=== PATIENT | male | born 1975 | race Caucasian/White ===

== ENCOUNTER 2018-01-09 18:24 | Emergency (ER) | payer SELFPAY | END 2018-01-09 19:15 | disposition home or self-care (01) | LOC: ER 18:24 | DX: S02.5XXA Fracture of tooth (traumatic), initial encounter for closed fracture (principal); K02.9 Dental caries, unspecified; X58.XXXA Exposure to other specified factors, initial encounter; Y93.89 Activity, other specified; Y99.8 Other external cause status; Y92.89 Other specified places as the place of occurrence of the external cause | CPT/HCPCS: 99283 ==

== ENCOUNTER → 2021-08-15 | Outpatient (CLI) | payer OTHER ==
[2018-01-09 18:27] VITALS: BP 118/71
[~2021-08-15] MED LIST: HYDR-3164 PO; PENI500T PO
== END ==
LOC: LAB 09:53
PROVIDERS: ATTEND Surgery
DX: U07.1 COVID-19 (principal); K40.90 Unilateral inguinal hernia, without obstruction or gangrene, not specified as recurrent
CPT/HCPCS: U0003; U0005

== ENCOUNTER 2021-09-12 12:29 | Day surgery (SDC) | payer OTHER ==
[~2021-09-12] VITALS: Ht 175.3 cm; Wt 67.5 kg
[~2021-09-12 12:29] MED LIST changes: +HYDROmorphone 2 MG/ML INJ. IVP PRN; +IV RINGERS,LACTATED 1000ML 1,000 ML IV SCH; +MORPHINE SULFATE 2 MG/ML INJ. IVP PRN; +PROCHLORPERAZINE 10 MG/2 ML VIAL. IVP PRN; +ceFAZolin SODIUM IV Push 1 GM VIAL. IVP PRN; +fentaNYL PF VIAL 100 MCG/2 ML VIAL IVP PRN
[2021-09-12] MEDS ORDERED: LIDOCAINE 2% PF 5 ML VIAL. ONE (13:48)
[2021-09-12] MEDS ORDERED: PROPOFOL 10 MG/ML (20ML) VIAL. IV ONE (13:48)
[2021-09-12] MEDS ORDERED: ROCURONIUM 50 MG/5 ML VIAL. ONE (13:49)
[2021-09-12] MEDS ORDERED: NEOSTIGMINE METHYLSULFATE 5 MG/5 ML SYRINGE. ONE (13:49)
[2021-09-12] MEDS ORDERED: fentaNYL PF VIAL 100 MCG/2 ML VIAL ONE (13:49)
[2021-09-12] MEDS ORDERED: MIDAZOLAM HCL/PF 2 MG/2 ML VIAL. ONE (13:49)
[2021-09-12] MEDS ORDERED: DEXAMETHASONE SOD PHOS 4 MG/ML VIAL ONE (13:50)
[2021-09-12] MEDS ORDERED: ONDANSETRON PF 4 MG/2 ML VIAL. ONE (13:50)
[2021-09-12] MEDS ORDERED: GLYCOPYRROLATE 1 MG/5 ML VIAL. ONE (13:50)
--- NOTE | 2021-09-12 14:16 | PDOC1 ---
History and Physical Date of Admission Date of Admission DATE: 09/12/21 TIME: 14:13 History of Present Illness History of Present Illness The patient is a 46-year-old male who is referred with an enlarging left inguinal hernia. Past Medical History Past Medical History Tobacco use Past Surgical History Past Surgical History He denies Social History Smoke: 1 pack per day ALCOHOL: heavy Current Medications Current Medications Current Medications Fentanyl Citrate (Fentanyl 2ml Vial) 25 mcg PRN Q5MIN PRN IVP MILD PAIN 1-3; Start 09/12/21 at 06:00; Stop 09/12/21 at 20:00 Fentanyl Citrate (Fentanyl 2ml Vial) 50 mcg PRN Q5MIN PRN IVP MODERATE PAIN 4- 6; Start 09/12/21 at 06:00; Stop 09/12/21 at 20:00 Morphine Sulfate (Morphine Sulfate) 1 mg PRN Q10MIN PRN IVP SEVERE PAIN 7-10; Start 09/12/21 at 06:00; Stop 09/12/21 at 20:00 Ringer's Solution 1,000 ml @ 30 mls/hr Q24H IV Last administered on 09/12/21at 13:06; Start 09/12/21 at 06:00; Stop 09/12/21 at 17:59 Hydromorphone HCl (Dilaudid) 0.5 mg PRN Q10MIN PRN IVP SEVERE PAIN 7-10, 2nd CHOICE; Start 09/12/21 at 06:00; Stop 09/12/21 at 20:00 Prochlorperazine Edisylate (Compazine) 5 mg PACU PRN PRN IVP NAUSEA, MRX1; Start 09/12/21 at 06:00; Stop 09/12/21 at 20:00 Cefazolin Sodium (Ancef) 1 gm 1X PREOP PRN IVP PRIOR TO PROCEDURE; Start 09/12/21 at 06:00 Active Scripts Active Reported No Known Medications Prior To Admisstion (Info) Each 1 Each MC 1X Allergies Allergies: Coded Allergies: No Known Drug Allergies (Unverified , 09/12/21) ROS General: No: Chills, Night Sweats, Fatigue, Malaise, Appetite, Other PSYCHOLOGICAL ROS: No: Anxiety, Behavioral Disorder, Concentration difficultie, Decreased libido, Depression, Disorientation, Hallucinations, Hostility, Irritablity, Memory difficulties, Mood Swings, Obsessive thoughts, Physical abu se, Sexual abuse, Sleep disturbances, Suicidal ideation, Other Eyes: No Blurry vision, No Decreased vision, No Double vision, No Dry eyes, No Excessive tearing, No Eye Pain, No Itchy Eyes, No Loss of vision, No Photophobia, No Scotomata, No Uses contacts, No Uses glasses, No Other HEENT: No: Heacaches, Visual Changes, Hearing change, Nasal congestion, Nasal discharge, Oral lesions, Sinus pain, Sore Throat, Epistaxis, Sneezing, Snoring, Tinnitus, Vertigo, Vocal changes, Other ALLERGY AND IMMUNOLOGY: No: Hives, Insect Bite Sensitivity, Itchy/Watery Eyes, Nasal Congestion, Post Nasal Drip, Seasonal Allergies, Other Hematological and Lymphatic: No: Bleeding Problems, Blood Clots, Blood Transfusions, Brusing, Night Sweats, Pallor, Swollen Lymph Nodes, Other ENDOCRINE: No: Breast Changes, Galactorrhea, Hair Pattern Changes, Hot Flashes, Malaise/lethargy, Mood Swings, Palpitations, Polydipsia/polyuria, Skin Changes, Temperature Intolerance, Unexpected Weight Changes, Other Respiratory: No: Cough, Hemoptysis, Orthopnea, Pleuritic Pain, Shortness of breath, SOB with excertion, Sputum Changes, Stridor, Tachypnea, Wheezing, Other Cardiovascular: No Chest Pain, No Palpitations, No Orthopnea, No Paroxysmal Noc. Dyspnea, No Edema, No Lt Headedness, No Other Gastrointestinal: No Nausea, No Vomiting, No Abdominal Pain, No Diarrhea, No Constipation, No Melena, No Hematochezia, No Other Genitourinary: No Dysuria, No Frequency, No Incontinence, No Hematuria, No Retention, No Discharge, No Urgency, No Pain, No Flank Pain, No Other, No , No , No , No , No , No , No Musculoskeletal: No Gait Disturbance, No Joint Pain, No Joint Stiffness, No Joint Swelling, No Muscle Pain, No Muscular Weakness, No Pain In:, No Swelling In:, No Other Neurological: No Behavorial Changes, No Bowel/Bladder ControlChng, No Confusion, No Dizziness, No Gait Disturbance, No Headaches, No Impaired Coord/balance, No Memory Loss, No Numbness/Tingling, No Seizures, No Speech Problems, No Tremors, No Visual Changes, No Weakness, No Other Skin: No Dry Skin, No Eczema, No Hair Changes, No Lumps, No Mole Changes, No Mottling, No Nail Changes, No Pruritus, No Rash, No Skin Lesion Changes, No Other, No Acne Physical Exam General: Alert, Oriented X3, Cooperative HEENT: Atraumatic Lungs: Clear to auscultation Heart: S1S2, RRR Abdomen: Soft, No tenderness, Other (Moderate sized left inguinal hernia, reducible) Rectal Exam: not examined Skin: No rashes, No breakdown Neuro: Normal gait, Normal speech, Strength at 5/5 X4 ext Psych/Mental Status: Mental status NL Vitals Vitals Vital Signs Date Time Temp Pulse Resp B/P (MAP) Pulse Ox O2 Delivery O2 Flow Rate FiO2 09/12/21 12:54 97.6 73 20 128/68 99 Room Air 97.6 VTE Prophylaxis Ordered VTE Prophylaxis Devices: Yes VTE Pharmacological Prophylaxi: No Assessment/Plan Assessment/Plan 46-year-old male with a left inguinal hernia. Recommend repair of the left inguinal hernia with use of mesh. The details and risks of surgery were discussed with the patient. He understands and would like to proceed. Justifications for Admission Other Justification RANDA VENTURA MD Sep 12, 2021 14:15
[2021-09-12] MEDS ORDERED: BUPIVACAINE-EPI 0.5% 30 ML VIAL KIT. ONE (14:19)
[2021-09-12] MEDS ORDERED: BUPIVACAINE-EPI 0.5%-1:200000 MPF 30 ML VIAL. INJ ONE (14:39)
--- NOTE | 2021-09-12 16:03 | PDOC4 ---
Operative Note Operative Note Operative Note: Preoperative Diagnosis: Left inguinal hernia Postoperative Diagnosis: Same Procedure: Left inguinal hernia repair with mesh Surgeon: Primo Computer Hardware Designer: CHRISTINA Koehler Connor Breidenbach MS4 Anesthesia: General EBL: 10 mL Specimen: None Drains: None Complications: None Indication: The patient is a 46-year-old male who is referred due to a symptomatic left inguinal hernia. The plan is to proceed with operative repair. The risks of surgery were discussed which include bleeding, infection, recurrence, pain, anesthetic risk, potential need for additional surgery procedure. He understands and would like to proceed. Description: The patient was taken to the operating room and placed supine on the operating table. General anesthesia was performed. The left groin was shaved and prepped with ChloraPrep and draped with sterile towels, sheets, and an Ioban. An incision was made in the skin lines with a scalpel. Cautery dissection was carried down to the external oblique aponeurosis. The aponeurosis was opened down to the external ring. The contents of the inguinal canal were digitally mobilized and encircled with a Stuart drain. The patient had a moderate to large indirect hernia sac. There was substantial amount of scarring due to the sac. The sac was mobilized from the surrounding tissues. The vas deferens and other cord structures were identified and preserved. The sac was opened and inspected. At the base there appeared to be a component of bowel consistent with sliding indirect hernia. The opening of the sac was closed and the sac was completely inverted. The defect was filled with an extra-large Phasix mesh plug. The plug was sutured into position with 2-0 Vicryl. The inguinal floor was then reinforced with a Prolene keyhole mesh patch. The mesh was also sutured into position with 2-0 Vicryl. A slit was made to accommodate the cord structures. The external oblique was closed over the mesh with 2-0 Vicryl. The subcutaneous tissue was approximated with 3-0 Vicryl. The skin was closed with 4-0 Monocryl and infiltrated with half percent Marcaine with epinephrine. Steri-Strips and a sterile dressing were applied. The patient tolerated the procedure well and was sent to the recovery room in stable condition. At the end the case all counts were correct. RANDA VENTURA MD Sep 12, 2021 16:03
[2021-09-12] MEDS ORDERED: OXYC-325 PO (16:05)
--- NOTE | 2021-09-12 16:06 | DISCH ---
DISCHARGE INSTRUCTIONS Condition on Discharge Condition on Discharge: Stable Activity After Discharge Activity Instructions for Disc: Other, see below (No lifting over 20 pounds x 4 weeks, no driving while taking pain meds) Diet after Discharge Diet after Discharge: Regular Wound Incision Care Wound/Incision Care: Other, see below (Keep dressing clean and dry x72 hours, may then remove and shower, Steri-Strips fall off on their own) Follow-Up Follow up with: Dr Ventura in 2 weeks in office, call for appt [phone] RANDA VENTURA MD Sep 12, 2021 16:06
[2021-09-12] MEDS ORDERED: oxyCODONE/APAP 5/325 1 TAB TABLET PO ONE (16:45)
[2021-09-12 16:50] VITALS: BP 121/77
== END 2021-09-12 17:30 | disposition home or self-care (01) ==
LOC: SURG 12:29
PROVIDERS: ATTEND Surgery
DX: K40.90 Unilateral inguinal hernia, without obstruction or gangrene, not specified as recurrent (principal); F17.210 Nicotine dependence, cigarettes, uncomplicated; Z79.899 Other long term (current) drug therapy; Z98.890 Other specified postprocedural states
CPT/HCPCS: 49505; A4364; A4930; A6402; C1781; J0690; J1100; J2250; J2405; J2704; J2710; J3010; J3490; A4452